=== PATIENT | female | born 2000 | race Caucasian/White ===

== ENCOUNTER 2024-02-22 20:23 | Inpatient (IN) | payer MEDICAID, OTHER ==
[~2024-02-22] VITALS: Ht 165.1 cm; Wt 91.0 kg
[2024-02-22 20:55] LABS: COVID AG,FIA SOURCE NASAL SWAB
[2024-02-22 20:59] LABS: PH,URINE DRUG SCREEN 7.5 (5.0-8.0)
[2024-02-22 21:06] LABS: ALCOHOL, URINE DRUG SCREEN NEGATIVE (NEGATIVE); AMPHET/METH SCREEN,URINE NEGATIVE (NEGATIVE); BARBITURATE SCREEN, URINE NEGATIVE (NEGATIVE); BENZODIAZEPINES SCREEN,URINE NEGATIVE (NEGATIVE); CANNABINOID SCREEN,URINE POSITIVE (NEGATIVE); COCAINE SCREEN,URINE NEGATIVE (NEGATIVE); METHADONE SCREEN, URINE NEGATIVE (NEGATIVE); OPIATE SCREEN,URINE NEGATIVE (NEGATIVE); PHENCYCLIDINE SCREEN,URINE NEGATIVE (NEGATIVE)
[2024-02-22 21:15] LABS: SARS-COV2 (COVID) ANTIGEN,FIA Negative (Negative)
[2024-02-22] MEDS: QUEtiapine FUMARATE 100 MG TABLET PO ONE (22:09)
[2024-02-22] MEDS: LORazepam 2 MG TABLET PO ONE (22:09)
[2024-02-23] VITALS (7 sets, daily range): BP systolic 109–139; BP diastolic 66–83; PULSE 63–84; RESP 17–18; TEMP 96.5–98; O2SAT 97–100
[2024-02-23] MEDS ORDERED: PETROLATUM,WHITE 28 GM JELLY TP PRN (09:30)
[2024-02-23] MEDS ORDERED: MAG HYDROX/ALUMINUM HYD/SIMETH ES 30 ML SUSPENSION UDCUP PO PRN (09:30)
[2024-02-23] MEDS ORDERED: GuaiFENesin/D-METHORPHAN [SUGAR-FREE] 200-20MG/10 ML SYRUP UDCUP PO PRN (09:30)
[2024-02-23] MEDS ORDERED: ALBUTEROL SULFATE HFA 90 MCG/PUFF 8 GM INHALER IH PRN (09:30)
[2024-02-23] MEDS ORDERED: CloNIDine HCL 0.1 MG TABLET PO PRN (09:30)
[2024-02-23] MEDS ORDERED: MAGNESIUM HYDROXIDE SUSPENSION 30 ML UDCUP PO PRN (09:30)
[2024-02-23] MEDS ORDERED: LOPERAMIDE HCL 2 MG CAPSULE PO PRN (09:30)
[2024-02-23] MEDS ORDERED: ONDANSETRON 4 MG TABLET PO PRN (09:30)
[2024-02-23] MEDS ORDERED: DOCUSATE SODIUM 100 MG CAPSULE PO PRN (09:30)
[2024-02-23] MEDS ORDERED: ACETAMINOPHEN 325 MG TABLET PO PRN (09:30)
[2024-02-23] MEDS: GABAPENTIN 300 MG CAPSULE PO SCH (12:23)
[2024-02-23] MEDS: LamoTRIgine 100 MG TABLET PO SCH (12:23)
[2024-02-23] MEDS: NICOTINE 14 MG/24 HOUR PATCH TD PRN (13:31)
[2024-02-23] MEDS: QUEtiapine FUMARATE 200 MG TABLET PO SCH (20:31)
[2024-02-23] MEDS: TraZODone HCL 50 MG TABLET PO SCH (20:31)
[2024-02-23] MEDS: ZOLPIDEM TARTRATE 10 MG TABLET PO PRN (20:44)
[2024-02-23] MEDS: IBUPROFEN 400 MG TABLET PO PRN (20:58)
[2024-02-23] MEDS ORDERED: GABAPENTIN 100 MG CAPSULE PO PRN (21:00)
[2024-02-23] MEDS: HALOPERIDOL 5 MG TABLET PO PRN (22:55)
[2024-02-24 08:48] LABS: APPEARANCE,URINE CLEAR (CLEAR); BILIRUBIN,URINE NEGATIVE (NEGATIVE); COLOR,URINE LIGHT YELLOW (YELLOW); GLUCOSE, URINE (UA) NEGATIVE (NEGATIVE); KETONES,URINE NEGATIVE (NEGATIVE); LEUKOCYTE ESTERASE ,URINE NEGATIVE (NEGATIVE); NITRATE,URINE NEGATIVE (NEGATIVE); OCCULT BLOOD,URINE NEGATIVE (NEGATIVE); PROTEIN,URINE NEGATIVE (NEGATIVE); SPECIFIC GRAVITIY, URINE 1.018 (1.003-1.030); UROBILINOGEN,URINE <=1.0 mg/dL (<=1.0)
[2024-02-24 08:54] LABS: BASOPHILS % (AUTO) 0.6 % (0.0-2.0); EOSINOPHILS % (AUTO) 2.2 % (1.0-6.0); HEMATOCRIT 38.3 % (36-46); HEMOGLOBIN 12.9 g/dL (12.0-16.0); LYMPHOCYTES # (AUTO) 3.4 K/uL (1.0-4.8); LYMPHOCYTES % (AUTO) 42.4 % (22.0-44.0); MEAN CORPUSCULAR HEMOGLOBIN 29.3 pg (26.0-34.0); MEAN CORPUSCULAR HGB CONC 33.7 G/dL (31.0-37.0); MEAN CORPUSCULAR VOLUME 87 fL (80-100); MONOCYTES # (AUTO) 0.6 K/uL (0.1-1.0); MONOCYTES % (AUTO) 7.4 % (2.0-9.0); NEUTROPHILS # (AUTO) 3.8 K/uL (1.8-7.7); NEUTROPHILS % (AUTO) 47.4 % (40.0-70.0); RED CELL DISTRIBUTION WIDTH 13.8 % (11.5-14.5)
[2024-02-24 08:55] LABS: ANION GAP 6 mmol/L (8-16); CALCIUM, TOTAL 8.7 mg/dL (8.8-10.5); CARBON DIOXIDE 25 mmol/L (22-29); CHLORIDE 106 mmol/L (98-107); CREATININE 0.69 mg/dL (0.60-1.30); GLOMERULAR FILTR. RATE CALC > 60 mL/min (>60); GLUCOSE,RANDOM 91 mg/dL (70-110); POTASSIUM 3.7 mmol/L (3.5-5.1); SODIUM SERUM 137 mmol/L (136-145); UREA NITROGEN, BLOOD 10 mg/dL (7-18)
[2024-02-24 08:55] LABS: ALCOHOL, URINE DRUG SCREEN NEGATIVE (NEGATIVE); AMPHET/METH SCREEN,URINE NEGATIVE (NEGATIVE); BARBITURATE SCREEN, URINE NEGATIVE (NEGATIVE); BENZODIAZEPINES SCREEN,URINE NEGATIVE (NEGATIVE); CANNABINOID SCREEN,URINE POSITIVE (NEGATIVE); COCAINE SCREEN,URINE NEGATIVE (NEGATIVE); METHADONE SCREEN, URINE NEGATIVE (NEGATIVE); OPIATE SCREEN,URINE NEGATIVE (NEGATIVE); PHENCYCLIDINE SCREEN,URINE NEGATIVE (NEGATIVE)
[2024-02-24 08:59] LABS: ALCOHOL, BLOOD (SERUM) < 3 mg/dL (0-10)
[2024-02-24 09:10] LABS: CHOL/HDL RATIO 2.2 (3.9-5.7); CHOLESTEROL 117 mg/dL (131-200); HDL CHOLESTEROL 53 mg/dL (40-60); LDL CHOL (CALC.) 48 mg/dL (0-130); THYROID STIMULATING HORMONE 1.63 uIU/mL (0.36-3.74); TRIGLYCERIDES 79 mg/dL (15-150)
[2024-02-24 09:17] LABS: PLATELET COUNT (AUTO) 305 K/uL (150-450)
[2024-02-24 09:18] LABS: HEMOGLOBIN A1C 5.2 % (3.8-5.6)
[2024-02-24] MEDS: LORazepam 2 MG TABLET PO PRN (12:20)
[2024-02-24 13:45] VITALS: BP 109/74; PULSE 74; RESP 16; TEMP 96.9; O2SAT 100
[2024-02-24 13:56] VITALS: BP 109/74; PULSE 74; RESP 16; TEMP 96.9; O2SAT 100
[2024-02-24] MEDS ORDERED: GABA-1181 PO (15:03)
[2024-02-24] MEDS ORDERED: LAMO-24 PO (15:03)
[2024-02-24] MEDS ORDERED: QUET200T30 PO (15:03)
[2024-02-24] MEDS ORDERED: TRAZ-252 PO (15:03)
== END 2024-02-24 16:41 | disposition home or self-care (01) | DRG 753 ==
LOC: EMS 20:23 → UNDOADMIN 23:19 → B2S 23:19 → UNDODISIN 02-24 16:41
PROVIDERS: ADMIT Psychiatry & Neurology Psychiatry; ATTEND Psychiatry & Neurology Psychiatry
PROC: GZHZZZZ Group Psychotherapy (ICD-10-PCS; principal; 2024-02-23)
DX: F31.4 Bipolar disorder, current episode depressed, severe, without psychotic features (principal); R45.851 Suicidal ideations; F60.3 Borderline personality disorder; Z20.822 Contact with and (suspected) exposure to COVID-19; F41.9 Anxiety disorder, unspecified; G47.00 Insomnia, unspecified; Z79.899 Other long term (current) drug therapy; F12.90 Cannabis use, unspecified, uncomplicated
CPT/HCPCS: 80048; 80061; 80307; 81003; 83036; 84443; 84703; 85025; 99285; G0480